=== PATIENT | male | born 2005 | race African-American/Black ===

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

== ENCOUNTER 2023-07-12 00:37 | Emergency (ER) | payer OTHER, SELFPAY ==
[2023-07-12 01:35] LABS: Bacteria/HPF None Seen HPF (None Seen); Bilirubin Negative (Negative); Blood, Urine 1+ (Negative); CAUTI Indications for Culture Pelvic or flank pain; Clarity Extra Turbid (Clear); Glucose, Urine (Dipstick) Normal (Negative); Ketone, Urine Negative (Negative); Leukocyte 500 Leu/uL (Negative); Nitrite Negative (Negative); Protein, Urine (Dipstick) 30 mg/dL (Neg-Trace); Specific Gravity, Urine 1.025 (1.002-1.036); Squamous Epithelial None Seen HPF (0-3); WBC/HPF Greater than 50 HPF (0-3)
[2023-07-12 01:37] LABS: Urine Culture Reflex Yes Yes
[2023-07-12] MEDS ORDERED: Doxycycline 100 MG CAP ONE (02:02)
[2023-07-12 15:07] LABS: Chlam.trachomatis by PCR,Urine Not Detected (NotDetected); GC N.gonorrhoeae PCR,UrineVOID DETECTED (NotDetected)
== END 2023-07-12 02:10 | disposition home or self-care (01) ==
LOC: ERS 00:37
DX: N39.0 Urinary tract infection, site not specified (principal)
CPT/HCPCS: 81001; 87086; 87491; 87591; 99283

== ENCOUNTER 2023-07-16 23:02 | Emergency (ER) | payer SELFPAY ==
[2023-07-16] MEDS ORDERED: cefTRIAXone (ROCEPHIN) 500 MG VIAL ONE (23:14)
[2023-07-16] MEDS ORDERED: Lidocaine 1% MPF 2 ML VIAL ONE (23:15)
[2023-07-17 00:11] LABS: Bacteria/HPF None Seen HPF (None Seen); Bilirubin Negative (Negative); Blood, Urine Trace (Negative); CAUTI Indications for Culture Pelvic or flank pain; Clarity Turbid (Clear); Glucose, Urine (Dipstick) Normal (Negative); Ketone, Urine Negative (Negative); Leukocyte 500 Leu/uL (Negative); Nitrite Negative (Negative); Protein, Urine (Dipstick) 20 mg/dL (Neg-Trace); Specific Gravity, Urine 1.014 (1.002-1.036); Squamous Epithelial None Seen HPF (0-3); Urobilinogen Normal mg/dL (Less than 2); WBC/HPF Greater than 50 HPF (0-3); Yeast-Budding 3+ HPF (None Seen); pH, Urine 6.5 (5.0-9.0)
[2023-07-17 00:17] LABS: Urine Culture Reflex Yes Yes
[2023-07-18 14:45] LABS: Chlam.trachomatis by PCR,Urine Not Detected (NotDetected); GC N.gonorrhoeae PCR,UrineVOID DETECTED (NotDetected)
== END 2023-07-16 23:40 | disposition home or self-care (01) ==
LOC: ERS 23:02
DX: A54.9 Gonococcal infection, unspecified (principal)
CPT/HCPCS: 81001; 87086; 87491; 87591; 96372; 99283; J0696

== ENCOUNTER 2025-06-06 15:07 | Emergency (ER) | payer SELFPAY ==
[2025-06-06] MEDS ORDERED: Ibuprofen 200 MG TAB ONE ×2 (16:37→16:39)
[2025-06-06] MEDS ORDERED: Methocarbamol 500 MG TAB ONE (16:37)
== END 2025-06-06 16:47 | disposition home or self-care (01) ==
LOC: ERS 15:07
DX: S76.011A Strain of muscle, fascia and tendon of right hip, initial encounter (principal); X58.XXXA Exposure to other specified factors, initial encounter
CPT/HCPCS: 72170; 99283